=== PATIENT | female | born 1955 | race Caucasian/White ===

== ENCOUNTER 2023-08-29 08:05 | Observation (INO) ==
--- NOTE | 2023-08-26 16:25 | Anesthesiology Consultation ---
Date of Service August 26, 2023 Assessment & Plan (1) Encounter for pre-operative examination: - Infectious disease screening: Per assessment on 08/25/23: No known recent infectious disease contacts or current infectious disease symptoms. - PCP visit (08/18/23): "Pt is to have pre-op testing completed in next few days. Clearance pending based on results." - Preop CXR: Done 08/21/23- notes "prominent bronchovascular markings, likely changes of bronchitis.." Patient was seen by PCP for preop evaluation appt on 08/18/23 and noted patient "Denies cough, shortness of breath, hemoptysis, wheezing.. Pulmonary: no respiratory distress, no accessory muscle use, no adventitious lung sounds, clear to auscultation.." Preop CXR was reviewed by PCP and per PCP addendum 08/25/23, ""Preop testing reviewed. Pt is at acceptable risk for planned procedure and may proceed as scheduled.." At anesthesiologist discretion DOS if further needed preoperatively from their perspective. Chart Review Chart Review: Acceptable Risk for Surgery (pending evaluation DOS) and Patient NOT seen in Pre Admission Testing History Surgery Operation Date: 08/29/23 11:25 Proposed Procedures p L3-L4 Decompression and Fusion with Spinal Cord Monitoring - Abdias Flowers, DO Height/Weight Height: 5 ft 1 in Weight: 115.666 kg Allergies Allergy/AdvReac Type Severity Reaction Status Date / Time amoxicillin Allergy head to Verified 08/25/23 12:54 toe rash and swelling nut - unspecified Allergy tongue Verified 08/25/23 13:10 swelling, and inside of mouth shellfish derived Allergy seafood Verified 08/25/23 13:10 itself-tongue swelling Medications Home Medications Medication Instructions Recorded Confirmed Last Taken baclofen 10 mg tablet 10 mg PO QID 08/25/23 08/25/23 Unknown beta carotene 15 mg tablet 15 mg PO QAM 08/25/23 08/25/23 Unknown biotin 10,000 mcg capsule 10,000 mcg PO QPM 08/25/23 08/25/23 Unknown celecoxib 200 mg capsule (Celebrex) 200 mg PO BID 08/25/23 08/25/23 Unknown cholecalciferol (vitamin D3) 125 125 mcg PO BID 08/25/23 08/25/23 Unknown mcg (5,000 unit) tablet (Vitamin D3) fluticasone propionate 50 1 spray intranasal HS 08/25/23 08/25/23 Unknown mcg/actuation nasal spray,suspension loratadine 10 mg tablet 10 mg PO DAILY PRN Allergy Symptoms 08/25/23 08/25/23 Unknown losartan 50 mg tablet 50 mg PO HS 08/25/23 08/25/23 Unknown magnesium 250 mg tablet 125 mg PO QID 08/25/23 08/25/23 Unknown multivitamin 0.5 tab PO QPM 08/25/23 08/25/23 Unknown ondansetron 4 mg disintegrating 4 mg PO Q6H PRN Nausea 08/25/23 08/25/23 Unknown tablet ropinirole 1 mg tablet 1 mg PO HS 08/25/23 08/25/23 Unknown simvastatin 40 mg tablet 40 mg PO HS 08/25/23 08/25/23 Unknown venlafaxine 37.5 mg 37.5 mg PO QAM 08/25/23 08/25/23 Unknown tablet,extended release 24 hr Past Medical History Medical History Depression with anxiety Hyperlipidemia Hypertension Restless leg syndrome Past Surgical History Surgical History History of anesthesia reaction "Always cries" with anesthesia emergence History of bilateral tubal ligation History of nasal surgery ~1984, reconstruction after surgery History of repair of rectocele History of total right hip arthroplasty 2018 Hx of appendectomy Hx of bladder repair surgery Hx of cholecystectomy Hx of hysterectomy Hx of lumbosacral spine surgery 2017, L3-L4 fusion, above L3-L4 "had bars and screws placed" Hx of wisdom tooth extraction Social History Smoking Status: Former smoker Do You Dip or Chew Tobacco: No Smoking End Date: 03/09/12 Hx Alcohol Use: Yes alcohol intake frequency: holidays/special occasions only Hx Substance Use: Yes substance use type: former substance user and marijuana (medical card) Testing Laboratory Results 08/21/23 WBC 11.95 H/H 15.8/49.3 PLATELETS 208 SODIUM 140 POTASSIUM 4.3 CHLORIDE 105 CO2 29.0 BUN 21.0 CREATININE 0.97 GLUCOSE 92 PT 11.6 PTT 29.9 INR 0.97 UA trace leuk est, neg bacteria Electrocardiogram Date: 08/21/23 SR at 64bpm. Chest X-Ray Date: 08/21/23 Prominent bronchovascular markings, likely changes of bronchitis. Tortuous aorta with atherosclerotic calcification. Degenerative changes of the thoracolumbar spine.
[~2023-08-29 08:05] MED LIST: dexAMETHasone**PF** 10 MG/ML VIAL IV SCH
[2023-08-29] MEDS: LR 15ML/HR IV SCH (08:39)
[2023-08-29] MEDS: LR 60ML/HR IV SCH (08:40)
[2023-08-29] MEDS: VANCOMYCIN HCL 1,750 MG in SODIUM CHLORIDE 0.9% 500 ML IV SCH (08:40)
[2023-08-29] MEDS: ACETAMINOPHEN 500 MG TAB PO SCH (09:02)
[2023-08-29] MEDS: CeleBREX 200 MG CAP PO SCH (09:03)
[2023-08-29] MEDS: GABAPENTIN 300 MG CAP PO SCH (09:03)
[2023-08-29] MEDS ORDERED: fentaNYL citrate PF 100 MCG/2 ML VIAL ONE (10:33)
[2023-08-29] MEDS ORDERED: MIDAZOLAM HCL 1 MG/ML 2ML VIAL ONE (10:33)
[2023-08-29] MEDS ORDERED: KETAMINE HCL 10MG/ML SYR ONE (10:34)
--- NOTE | 2023-08-29 10:59 | History & Physical Bridge Note ---
Date of Service August 29, 2023 History & Physical Bridge Note I have examined the patient, reviewed the History & Physical and in the interval since the performance of the History & Physical I have noted the following changes of clinical significance: no changes noted
--- NOTE | 2023-08-29 11:00 | History & Physical Report ---
Date of Service August 29, 2023 Assessment & Plan (1) Neurogenic claudication due to lumbar spinal stenosis: Plan: L3-L4 decompression and fusion, removal of L4-L5 hardware History of Present Illness Chief Complaint: Back and bilateral leg pain Primary Care Provider: Prasad Mcadams MD This is a 68-year-old female who presents with chronic persistent back and leg pain and failing since course of nonoperative care is here for surgical invention. Allergies Allergy/AdvReac Type Severity Reaction Status Date / Time amoxicillin Allergy head to Verified 08/29/23 08:43 toe rash and swelling nut - unspecified Allergy tongue Verified 08/29/23 08:43 swelling, and inside of mouth shellfish derived Allergy seafood Verified 08/29/23 08:43 itself-tongue swelling Home Medications Medication Instructions Recorded Confirmed Type baclofen 10 mg tablet 10 mg PO QID 08/25/23 08/29/23 History beta carotene 15 mg tablet 15 mg PO QAM 08/25/23 08/29/23 History biotin 10,000 mcg capsule 10,000 mcg PO QPM 08/25/23 08/29/23 History celecoxib 200 mg capsule (Celebrex) 200 mg PO BID 08/25/23 08/29/23 History cholecalciferol (vitamin D3) 125 125 mcg PO BID 08/25/23 08/29/23 History mcg (5,000 unit) tablet (Vitamin D3) fluticasone propionate 50 1 spray intranasal HS 08/25/23 08/29/23 History mcg/actuation nasal spray,suspension loratadine 10 mg tablet 10 mg PO DAILY PRN Allergy Symptoms 08/25/23 08/29/23 History losartan 50 mg tablet 50 mg PO HS 08/25/23 08/29/23 History magnesium 250 mg tablet 125 mg PO QID 08/25/23 08/29/23 History multivitamin 0.5 tab PO QPM 08/25/23 08/29/23 History ondansetron 4 mg disintegrating 4 mg PO Q6H PRN Nausea 08/25/23 08/29/23 History tablet ropinirole 1 mg tablet 1 mg PO HS 08/25/23 08/29/23 History simvastatin 40 mg tablet 40 mg PO HS 08/25/23 08/29/23 History venlafaxine 37.5 mg 37.5 mg PO QAM 08/25/23 08/29/23 History tablet,extended release 24 hr Past Med/Surg History Problem List (Updated 08/29/23 @ 11:00 by Abdias Flowers DO) Neurogenic claudication due to lumbar spinal stenosis Encounter for pre-operative examination Medical History Depression with anxiety Hyperlipidemia Hypertension Restless leg syndrome Surgical History History of anesthesia reaction "Always cries" with anesthesia emergence History of bilateral tubal ligation History of nasal surgery ~1984, reconstruction after surgery History of repair of rectocele History of total right hip arthroplasty 2018 Hx of appendectomy Hx of bladder repair surgery Hx of cholecystectomy Hx of hysterectomy Hx of lumbosacral spine surgery 2017, L3-L4 fusion, above L3-L4 "had bars and screws placed" Hx of wisdom tooth extraction Social History Smoking Status: Former smoker Smoking End Date: 03/09/12; Second Hand Exposure: No; Do You Dip or Chew Tobacco: No; Tobacco Cessation Education Requested by Patient: No Hx Alcohol Use: Yes Hx Substance Use: Yes Preferred Language: German Communication Ability: Effective Forestry Adviser Required: No Beliefs That Will Affect Care: None Current Living Situation: Alone Other Information That Helps Us Care for You: No Feels Safe at Home: Yes Safety Concerns: Feels Safe At This Time Assistive Devices: Glasses and Other Assistive Devices Comment: partials upper and lower Physical Exam Physical Exam: Patient is alert and oriented Heart regular in rhythm Lungs clear Results & Data Results & Data Vital Signs (Past 12 Hours) Vital Signs Temp Pulse Resp BP Pulse Ox O2 Del Method 08/29/23 08:48 36.6 C 73 20 164/105 H 94 Room Air
[2023-08-29] MEDS ORDERED: LABETALOL HCL IV 5 MG/ML 20ML IV PRN (11:17)
[2023-08-29] MEDS ORDERED: ATROPINE SULFATE 0.1 MG/ML 10ML SYR IV PRN (11:17)
[2023-08-29] MEDS ORDERED: NALOXONE HCL 0.4 MG/1 ML VIAL/CARP IV PRN ×2 (11:17→16:34)
[2023-08-29] MEDS ORDERED: PROMETHAZINE HCL 6.25 MG in SODIUM CHLORIDE 0.9% 50 ML IV PRN (11:17)
[2023-08-29] MEDS ORDERED: HYDROmorphone INJ 1 MG/ML SYRINGE IV PRN (11:17)
[2023-08-29] MEDS ORDERED: ONDANSETRON INJ 2 MG/ML 2 ML VIAL IV PRN ×2 (11:17→16:34)
[2023-08-29] MEDS ORDERED: FLUMAZENIL 0.1 MG/1 ML 10 ML VIAL IV PRN (11:17)
[2023-08-29] MEDS ORDERED: ePHEDrine sulfate 50 MG/ML AMP IV PRN (11:17)
[2023-08-29] MEDS: BUPIVACAINE/EPINEPHRINE 0.25% 1:200,000 30 ML VIAL ONE (12:07)
[2023-08-29] MEDS ORDERED: ROCURONIUM BROMIDE 10 MG/ML 5 ML VIAL IV ONE ×2 (12:12→13:32)
[2023-08-29] MEDS ORDERED: PHENYLEPHRINE 100MCG/ML 10ML SYR IV ONE (12:55)
[2023-08-29] MEDS ORDERED: HYDROmorphone INJ 2 MG/ML SYR/VIAL ONE (12:55)
[2023-08-29] MEDS ORDERED: ePHEDrine sulfate 50 MG/5 ML SYR ONE (12:55)
[2023-08-29] MEDS ORDERED: SUGAMMADEX SODIUM 200 MG/2 ML VIAL IV ONE ×2 (13:31→13:50)
[2023-08-29] MEDS ORDERED: SUCCINYLCHOLINE CHLORIDE 20 MG/ML 10 ML VIAL IV ONE (13:32)
[2023-08-29] MEDS: ceFAZolin 330 MG/ML 1 GM VIAL ONE (13:33)
[2023-08-29] MEDS: FLOSEAL HEMOSTATIC MATRIX 10ML TOP ONE (13:33)
--- NOTE | 2023-08-29 13:50 | Operative Report ---
Post Operative Report Pre & Post Diagnosis Operation Date: 08/29/23 11:25 Pre-Op Diagnosis: Neurogenic Claudication due to Lumbar Spinal Stenosis spondylolisthesis L3-L4 Morbid obesity Post-Op Diagnosis: Same I identified the patient and participated in the time-out.: Yes Procedure Operation Date: 08/29/23 11:25 Actual Procedures #1 removal of instrumentation L4 5. #2 exploration of fusion L4-5. #3 lumbar decompression with bilateral medial facetectomies and foraminotomies L2-L3 L3- L4. #4 posterior spinal fusion L3-L4. #5 placement posterior instrumentation L3-L5. #6 interbody fusion L3-L4. #7 placement of Spira 12 x 26 mm x 2 at L3- L4. #8 placement locally harvested morselized autograft in the posterior gutters. #9 placement infuse collagen sponge, with Koros in the posterior lateral gutters and Morpheus interbody space. Surgeon Abdias Flowers, DO Dairy Specialist Tristin Elizabeth Estimated Blood Loss 450 Findings See Below The patient is 5 foot 1 weighing over 116 kg with a BMI in excess of 48. The patient's body habitus did contribute to significant technical difficulty with positioning exposure and the procedure itself. This at least 50% increased operative time and I would attach 22 modifier to this procedure. Specimens None Indications This is a 68-year-old female who presents problems diagnosis of failed course of nonoperative care she is here for surgical invention. Description of Procedure Patient was met with identified informed consent obtained. Patient was then taken to the operative suite underwent patient placed in a prone position on the Kelvin table on top of the Krunal frame. All bony prominences well-padded eyes inspected to ensure no external pressure placed upon them. This point the lumbar spine was prepped and draped in normal sterile fashion. Sharp dissection with the assistance of Bovie cautery form down to and exposing the lamina and transverse processes of L3 and instrumentation L4-L5 bilaterally. I then proceeded to move the hardware bilaterally explored the fusion mass at L4-5 noting the bone to be mature and intact. I then performed a complete laminectomy of L3 including bilateral medial facetectomies and foraminotomies addressing severe spinal stenosis. I performed a partial laminectomy L2 including bilateral medial facetectomies to address all lateral recess stenosis. Pedicle screws were then placed in L3 L4-5 bilaterally with assistance of fluoroscopy in the process du placed. By way of transforaminal approach on the right at discectomy of L3-L4 was performed endplates guided to subcortical bleeding bone and a 12 x 26 mm spiral cage filled with Morpheus bone graft t apped in position. Then proceeded to the left transforaminal region at L3-L4. Discectomy performed endplates guided to subcortical bleeding bone and a second 12 x 26 mm spiral cage filled with I factor tapped in position. The rods were then compressed locked in final position bilaterally. The transverse processes of L3-L4 burred to subcortical bleeding bone. Infuse collagen sponge, with Koros and local autograft placed in the posterior gutters. 15 round SHARONDA inserted. The incision was then closed with 1 Vicryl in the fascia 2-0 Vicryl subcutaneously and 4 Monocryl for final skin closure. Steri-Strips sterile dressing placed. Patient waken taken PACU stable condition. Please note spinal cord monitoring was utilized at the procedure no changes noted. Berenice Elizabeth was present at the entire surgery upon the patient positioning complex course of the surgery and final skin closure. I attest to the content of the Intraoperative Record and any orders documented therein. Any exceptions are noted below.
--- NOTE | 2023-08-29 14:19 | Fluoroscopy Report ---
FL lumbar spine 2-3V CLINICAL HISTORY: L3-L4 DECOMPRESSION AND FUSION TECHNIQUE: 2 views were obtained with the C-arm in the OR with the above procedure. Total fluoroscopy time was 17.7 seconds. Radiation dose was 20.13 mGy. Comparison: None available at the time of this dictation. FINDINGS/IMPRESSION: Intraoperative images were obtained of L3-L4 decompression and fusion. Please correlate with intraoperative fluoroscopy and operative report. ACT 112: Negative or not required by law. Electronically signed by: Jackson Quispe M.D. 08/29/2023 2:17 PM
[2023-08-29] MEDS: fentaNYL citrate PF 100 MCG/2 ML VIAL IV PRN (14:45)
[2023-08-29] MEDS ORDERED: LORATADINE 10 MG TAB PO PRN (16:34)
[2023-08-29] MEDS ORDERED: ALUMINUM/MAGNESIUM SUSP 30 ML UDC PO PRN (16:34)
[2023-08-29] MEDS ORDERED: LORazepam 0.5 MG in SYRINGE 0.25 ML IV PRN (16:34)
[2023-08-29] MEDS ORDERED: SOD PHOSPHATE/SOD BIPHOSPHATE ENEMA 132 ML BTL PR PRN (16:34)
[2023-08-29] MEDS ORDERED: DO NOT ADMINISTER PNEUMOCOCCAL VACCINE PRN (16:34)
[2023-08-29] MEDS ORDERED: METOCLOPRAMIDE HCL INJ 5 MG/ML 2 ML VIAL IV PRN (16:34)
[2023-08-29] MEDS ORDERED: bisacodyL 10 MG SUPP PR PRN (16:34)
[2023-08-29] MEDS ORDERED: DO NOT ADMINISTER FLU VACCINE PRN (16:34)
[2023-08-29] MEDS ORDERED: MAGNESIUM HYDROXIDE SUSP 30 ML UDC PO PRN (16:34)
[2023-08-29] MEDS ORDERED: ACETAMINOPHEN 1,000 MG/100 ML VIAL IV PRN (16:34)
[2023-08-29] MEDS ORDERED: ACETAMINOPHEN 500 MG TAB PO PRN (16:34)
[2023-08-29] MEDS ORDERED: hydrOXYzine HCl 25 MG TAB PO PRN (16:34)
[2023-08-29] MEDS ORDERED: FAMOTIDINE 20 MG TAB PO PRN (16:34)
[2023-08-29] MEDS ORDERED: PROMETHAZINE HCL 12.5 MG in SODIUM CHLORIDE 0.9% 50 ML IV PRN (16:34)
[2023-08-29] MEDS ORDERED: diphenhydrAMINE Capsule 25 MG CAP PO PRN (16:34)
[2023-08-29] MEDS ORDERED: HYDROmorphone INJ 0.5 MG/0.5 ML SYR IV PRN (16:34)
[2023-08-29] MEDS ORDERED: NON-FORMULARY MEDICATION (Magnesium 250 mg Tablet) PO SCH (17:00)
--- NOTE | 2023-08-29 17:09 | Anesthesiology Progress Note ---
Date of Service August 29, 2023 Anesthesia Post Procedure Vital Signs Vital Signs: Temp Pulse Pulse Resp BP Pulse Ox O2 Del Method 08/29/23 16:55 36.5 C 79 22 118/70 95 Room Air 08/29/23 16:26 36.7 C 80 18 109/61 97 Room Air 08/29/23 15:35 36.9 C 83 14 129/71 97 Room Air 08/29/23 15:25 36.9 C 85 20 126/60 98 Room Air 08/29/23 15:15 36.9 C 82 16 130/54 L 98 Room Air 08/29/23 15:05 36.9 C 82 8 L 129/63 98 Room Air 08/29/23 14:55 83 18 119/85 98 Room Air 08/29/23 14:45 83 8 L 104/66 99 Oxymask 08/29/23 14:35 79 18 134/59 L 98 Oxymask 08/29/23 14:26 36.6 C 98 H 10 L 165/73 H 100 Oxymask 08/29/23 08:48 36.6 C 73 20 164/105 H 94 Room Air O2 Flow Rate 08/29/23 16:55 08/29/23 16:26 08/29/23 15:35 08/29/23 15:25 08/29/23 15:15 08/29/23 15:05 08/29/23 14:55 08/29/23 14:45 1 08/29/23 14:35 3 08/29/23 14:26 5 08/29/23 08:48 Pain Intensity Back: Pain Intensity: 3 Transfer of Care Handoff Completed per policy Notes Mental Status: alert / awake / arousable Patient Amnestic to Procedure: Yes Nausea / Vomiting: adequately controlled Pain: adequately controlled Airway Patency, RR, SpO2: stable & adequate BP & HR: stable & adequate Hydration State: stable & adequate Anesthetic Complications: no major complications apparent and Pt Satisfied with anesthetic care
[2023-08-29] MEDS: HYDROmorphone INJ 1 MG/ML SYRINGE IV PRN (17:17)
[2023-08-29] MEDS: LACTATED RINGER'S 1,000 ML IV SCH (17:18)
--- NOTE | 2023-08-29 17:34 | Consultation ---
Date of Consultation August 29, 2023 Assessment & Plan (1) Neurogenic claudication due to lumbar spinal stenosis: Plan Neurogenic Claudication due to Lumbar Spinal Stenosis s/p lumbar spine sx 08/28, pt reports improvement in BLE radicular symptoms Labs in AM, watch out for acute blood loss anemia. pt is hemodynamically stable, c/w pain control and bowel regimen DVT Px and PT/OT per direction from primary team Other chronic med contitions: HTN, HLD, Anxiety, Depression -- c/w or resume home meds as and when able. DVT Px - SCDs, chemo px per 1* team Full code. History of Present Illness Requesting Physician: Dr. Flowers Reason for Consultation: medical Mx Attending Physician: Abdias Folwers, History of Present Illness 68 yo F w/ PMH of anxiety/depression on effexor, HLD, HTN, arthritic pain was seen at bedside as medical consult after lumbar spine Sx. She is hemodynamically stable, denied recent febrile illness. She reports improvement in her BLE radicular symptoms after the surgery. She reports operative site pain under control w/ pain meds. No h/o afib or blood clot per pt. Denies cough, chest pain, or abdominal pain. Denies recent acute changes in bowel or bladder habit. Denies smoking, very rare alc use Full code. Allergies Allergy/AdvReac Type Severity Reaction Status Date / Time amoxicillin Allergy head to Verified 08/29/23 08:43 toe rash and swelling nut - unspecified Allergy tongue Verified 08/29/23 08:43 swelling, and inside of mouth shellfish derived Allergy seafood Verified 08/29/23 08:43 itself-tongue swelling Home Medications Medication Instructions Recorded Confirmed Type baclofen 10 mg tablet 10 mg PO QID 08/25/23 08/29/23 History beta carotene 15 mg tablet 15 mg PO QAM 08/25/23 08/29/23 History biotin 10,000 mcg capsule 10,000 mcg PO QPM 08/25/23 08/29/23 History celecoxib 200 mg capsule (Celebrex) 200 mg PO BID 08/25/23 08/29/23 History cholecalciferol (vitamin D3) 125 125 mcg PO BID 08/25/23 08/29/23 History mcg (5,000 unit) tablet (Vitamin D3) fluticasone propionate 50 1 spray intranasal HS 08/25/23 08/29/23 History mcg/actuation nasal spray,suspension loratadine 10 mg tablet 10 mg PO DAILY PRN Allergy Symptoms 08/25/23 08/29/23 History losartan 50 mg tablet 50 mg PO HS 08/25/23 08/29/23 History magnesium 250 mg tablet 125 mg PO QID 08/25/23 08/29/23 History multivitamin 0.5 tab PO QPM 08/25/23 08/29/23 History ondansetron 4 mg disintegrating 4 mg PO Q6H PRN Nausea 08/25/23 08/29/23 History tablet ropinirole 1 mg tablet 1 mg PO HS 08/25/23 08/29/23 History simvastatin 40 mg tablet 40 mg PO HS 08/25/23 08/29/23 History venlafaxine 37.5 mg 37.5 mg PO QAM 08/25/23 08/29/23 History tablet,extended release 24 hr Patient History Medical History Depression with anxiety Hyperlipidemia Hypertension Restless leg syndrome Surgical History History of anesthesia reaction "Always cries" with anesthesia emergence History of bilateral tubal ligation History of nasal surgery ~1984, reconstruction after surgery History of repair of rectocele History of total right hip arthroplasty 2018 Hx of appendectomy Hx of bladder repair surgery Hx of cholecystectomy Hx of hysterectomy Hx of lumbosacral spine surgery 2017, L3-L4 fusion, above L3-L4 "had bars and screws placed" Hx of wisdom tooth extraction Social History Smoking Status: Former smoker Smoking End Date: 03/09/12; Second Hand Exposure: No; Do You Dip or Chew Tobacco: No; Tobacco Cessation Education Requested by Patient: No Hx Alcohol Use: Yes Hx Substance Use: Yes Preferred Language: Malagasy Communication Ability: Effective Promotions Executive Required: No Beliefs That Will Affect Care: None Current Living Situation: Alone Other Information That Helps Us Care for You: No Feels Safe at Home: Yes Safety Concerns: Feels Safe At This Time Assistive Devices: Glasses and Other Assistive Devices Comment: partials upper and lower Review of Systems Review of Systems: Neg otherwise mentioned in HPI Physical Exam Physical Exam: GENERAL: Alert and oriented x3. NAD, on RA. Obese class III. HEENT: No pallor, no icterus. Pupils equal, round and reactive to light. Oral mucosa moist. NECK: No JVD, no neck masses. HEART: S1 and S2 heard. Regular rate and rhythm. No murmur, no gallop. RESPIRATORY SYSTEM: Normal AP diameter. No accessory muscle use. No wheezing, no crackles. ABDOMEN: Soft, bowel sounds present, nontender, no distention. CENTRAL NERVOUS SYSTEM: No facial droop. Speech is clear. Obeys simple commands. Moves extremities. EXTREMITIES: No edema, no erythema seen. Low back dressing w/o soakage. SHARONDA drain w/ mod serosanguineous collection noted. Results & Data Vital Signs (Past 12 Hours) Vital Signs Temp Pulse Pulse Resp BP Pulse Ox O2 Del Method 08/29/23 17:24 36.4 C L 78 20 120/61 97 Room Air 08/29/23 16:55 36.5 C 79 22 118/70 95 Room Air 08/29/23 16:26 36.7 C 80 18 109/61 97 Room Air 08/29/23 15:35 36.9 C 83 14 129/71 97 Room Air 08/29/23 15:25 36.9 C 85 20 126/60 98 Room Air 08/29/23 15:15 36.9 C 82 16 130/54 L 98 Room Air 08/29/23 15:05 36.9 C 82 8 L 129/63 98 Room Air 08/29/23 14:55 83 18 119/85 98 Room Air 08/29/23 14:45 83 8 L 104/66 99 Oxymask 08/29/23 14:35 79 18 134/59 L 98 Oxymask 08/29/23 14:26 36.6 C 98 H 10 L 165/73 H 100 Oxymask 08/29/23 08:48 36.6 C 73 20 164/105 H 94 Room Air O2 Flow Rate 08/29/23 17:24 08/29/23 16:55 08/29/23 16:26 08/29/23 15:35 08/29/23 15:25 08/29/23 15:15 08/29/23 15:05 08/29/23 14:55 08/29/23 14:45 1 08/29/23 14:35 3 08/29/23 14:26 5 08/29/23 08:48
[2023-08-29] MEDS: oxyCODONE HCL IR 5 MG TAB (IMMEDIATE RELEASE) PO PRN (18:48)
[2023-08-29] MEDS: DOCUSATE SODIUM/SENNA 50/8.6MG TAB PO SCH (20:56)
[2023-08-29] MEDS: FLUTICASONE PROPIONATE NA SPR 16 GM BTL SCH (20:56)
[2023-08-29] MEDS: CLINDAMYCIN/D5W 600 MG/50 ML BAG IV SCH (20:56)
[2023-08-29] MEDS: rOPINIRole HCL 1 MG TABLET PO SCH (20:57)
[2023-08-29] MEDS: LOSARTAN POTASSIUM 50 MG TAB PO SCH (20:57)
[2023-08-29] MEDS: CHOLECALCIFEROL 125 MCG (5,000 UNITS) TAB PO SCH (20:57)
[2023-08-29] MEDS: SIMVASTATIN 40 MG TAB PO SCH (20:57)
[2023-08-29] MEDS: MULTIVITAMIN TAB PO SCH (21:10)
[2023-08-30] MEDS ORDERED: Nursing to Pharmacy Communication SCH (03:45)
[2023-08-30] MEDS: POLYETHYLENE (MIRALAX) 17 GM PACK PO SCH (05:36)
[2023-08-30 07:11] LABS: Basophils # (auto) 0.01 K/uL (0.00-0.20); Basophils % (auto) 0.1 %; Hematocrit (blood only) 36.7 % (37.0-47.0); Immature Granulocytes # (auto) 0.08 K/uL (0.01-0.20); Immature Granulocytes % (auto) 0.6 %; Lymphocytes # (auto) 0.95 K/uL (1.20-3.40); Lymphocytes % (auto) 7.2 %; Mean Corpuscular Hemoglobin 29.6 pg (25.0-34.0); Mean Corpuscular Hgb Conc 32.7 g/dL (32.0-36.0); Mean Corpuscular Volume 90.6 fL (80.0-100.0); Mean Platelet Volume 10.8 fL (9.4-12.4); Monocytes # (auto) 0.64 K/uL (0.11-0.59); Monocytes % (auto) 4.9 %; Neutrophils # (auto) 11.51 K/uL (1.40-6.50); Neutrophils % (auto) 87.2 %; Platelet Count 148 K/uL (130-400); RDW Coefficient of Variation 15.7 % (11.5-14.5); RDW Standard Deviation 51.4 fL (36.4-46.3); Red Blood Count 4.05 M/uL (4.20-5.40); White Blood Count 13.19 K/ul (4.8-10.8)
[2023-08-30 07:32] LABS: Calcium 8.5 mg/dl (8.6-10.3); Creatinine Clr Calc Pharmacy 81.1 ml/min; Est GFR (African American) 87.7 ml/min; Est GFR (Non-African American) 75.7 ml/min; Potassium 4.4 mmol/L (3.5-5.1)
[2023-08-30] MEDS: dexAMETHasone 6 MG in SYRINGE 0 ML IV SCH (08:17)
[2023-08-30] MEDS: VENLAFAXINE HCL XR 37.5 MG CAPXR PO SCH (08:17)
[2023-08-30] MEDS: MULTIVITAMIN TAB PO SCH (08:18)
--- NOTE | 2023-08-30 08:46 | Orthopedic Progress Note ---
Date of Service August 30, 2023 Assessment & Plan (1) Neurogenic claudication due to lumbar spinal stenosis: Plan: At this time initiate physical therapy monitor SHARONDA output anticipate discharge home Friday. Admission and Anticipated Discharge Date Admission Date: August 29, 2023 Subjective Back pain is controlled leg symptoms markedly improved Physical Exam Physical Exam: Patient is seen in bed. She is comfortable. Is good strength testing. Results & Data Vital Signs (Past 12 Hours) Vital Signs Temp Pulse Pulse Resp BP Pulse Ox O2 Del Method 08/30/23 07:54 36.6 C 67 18 121/62 95 Room Air 08/30/23 04:00 36.6 C 70 18 156/62 H 96 Room Air 08/29/23 23:37 Room Air 08/29/23 22:52 36.5 C 73 20 131/67 96 Room Air 08/29/23 20:55 36.5 C 82 16 131/65 94 Room Air Queries Orthopedic Spine Obesity: Yes
--- NOTE | 2023-08-30 11:54 | Hospitalist Progress Note ---
Date of Service August 30, 2023 Assessment & Plan (1) Neurogenic claudication due to lumbar spinal stenosis: Plan Pt is a 68yoF w/ PMHx significant for anxiety/depression on Effexor, HLD, HTN, arthritic pain who is s/p lumbar decompression and spinal fusion. Neurogenic Claudication due to Lumbar Spinal Stenosis Pt is s/p lumbar decompression with bilateral medial facetectomies and foraminotomies L2-L3 L3-L4, and posterior spinal fusion L3-L4 on 08/29/[address] Flowers Pt reports improvement in BLE radicular symptoms EBL#450ml Pain management per primary team Wound management per primary team DVT prophylaxis per primary team PT/OT as appropriate Incentive spirometry Monitor H&H for acute blood loss anemia; Hgb stable Other chronic med conditions: HTN, HLD, Anxiety, Depression -- continue with and resume home meds when able. DVT Px - per primary team Dispo: per primary team, home on Friday Admission and Anticipated Discharge Date Admission Date: August 29, 2023 Subjective pt was seen sitting in chair near bedside. Denied chest pain, SOB, palpitations. States pain controlled. Otherwise denied acute concerns. Review of Systems Review of Systems: All systems reviewed & are unremarkable except as noted in Subjective Physical Exam Physical Exam: General: Alert, oriented. No acute distress Psych: Appropriate mood and affect Neuro: difficulty with movements in the chair HEENT: NC/AT CV: RRR, Normal s1, s2. Resp: Breath sounds clear bilaterally, no increased effort of breathing. Abdomen: Soft, nontender, nondistended. Extremities: No edema in lower extremities bilaterally. Results & Data Results & Data Vital Signs (Past 12 Hours) Vital Signs Temp Pulse Resp BP Pulse Ox O2 Del Method 08/30/23 07:54 36.6 C 67 18 121/62 95 Room Air 08/30/23 04:00 36.6 C 70 18 156/62 H 96 Room Air
[2023-08-30] MEDS: LORazepam 0.5 MG TAB PO PRN (21:49)
[2023-08-31 06:45] LABS: Hematocrit (blood only) 38.3 % (37.0-47.0); Hemoglobin 12.2 g/dl (12.0-16.0); Mean Corpuscular Hemoglobin 29.1 pg (25.0-34.0); Mean Corpuscular Hgb Conc 31.9 g/dL (32.0-36.0); Mean Corpuscular Volume 91.4 fL (80.0-100.0); Mean Platelet Volume 11.1 fL (9.4-12.4); Platelet Count 171 K/uL (130-400); RDW Standard Deviation 54.3 fL (36.4-46.3); Red Blood Count 4.19 M/uL (4.20-5.40); White Blood Count 15.74 K/ul (4.8-10.8)
[2023-08-31 07:11] LABS: BUN Creatinine Ratio 28.8 (10-20); Calcium 9.1 mg/dl (8.6-10.3); Creatinine Clr Calc Pharmacy 82.1 ml/min; Est GFR (Non-African American) 76.8 ml/min; Potassium 4.5 mmol/L (3.5-5.1)
--- NOTE | 2023-08-31 09:16 | Orthopedic Progress Note ---
Date of Service August 31, 2023 Assessment & Plan (1) Neurogenic claudication due to lumbar spinal stenosis: Plan: We will continue therapy today. Have her navigate stairs today. Anticipate discharge home tomorrow. Admission and Anticipated Discharge Date Admission Date: August 29, 2023 Subjective Back pain controlled leg pain improved Physical Exam Physical Exam: Patient is in the chair at the bedside. She is strength testing. There is com fortable. Results & Data Vital Signs (Past 12 Hours) Vital Signs Temp Pulse Resp BP Pulse Ox O2 Del Method 08/31/23 07:56 36.4 C 65 18 149/86 H 94 Room Air 08/30/23 22:04 36.6 C 79 22 157/79 H 96 Room Air Queries Orthopedic Spine Obesity: Yes
[2023-08-31] MEDS: traMADol HCL 50 MG TABLET PO PRN (10:39)
--- NOTE | 2023-08-31 14:28 | Hospitalist Progress Note ---
Date of Service August 31, 2023 Assessment & Plan (1) Neurogenic claudication due to lumbar spinal stenosis: Plan Pt is a 68yoF w/ PMHx significant for anxiety/depression on Effexor, HLD, HTN, arthritic pain who is s/p lumbar decompression and spinal fusion. Neurogenic Claudication due to Lumbar Spinal Stenosis Pt is s/p lumbar decompression with bilateral medial facetectomies and foraminotomies L2-L3 L3-L4, and posterior spinal fusion L3-L4 on 08/29/[address] Flowers Pt reports improvement in BLE radicular symptoms EBL#450ml Pain management per primary team Wound management per primary team DVT prophylaxis per primary team PT/OT as appropriate Incentive spirometry Monitor H&H for acute blood loss anemia; Hgb stable Other chronic med conditions: HTN, HLD, Anxiety, Depression -- continue with and resume home meds when able. DVT Px - per primary team Dispo: per primary team, home on Friday Admission and Anticipated Discharge Date Admission Date: August 29, 2023 Subjective Pt was seen laying in bed States she had difficulty with movements today whie working with PT. Denied pain, chest pain, SOB, Review of Systems Review of Systems: All systems reviewed & are unremarkable except as noted in Subjective Physical Exam Physical Exam: General: Alert, oriented. No acute distress Psych: Appropriate mood and affect Neuro: difficulty with movements HEENT: NC/AT CV: RRR Resp: no increased effort of breathing. Abdomen: Soft, nontender, nondistended. Extremities: No edema in lower extremities bilaterally. Results & Data Results & Data Vital Signs (Past 12 Hours) Vital Signs Temp Pulse Resp BP Pulse Ox O2 Del Method 08/31/23 07:56 36.4 C 65 18 149/86 H 94 Room Air
[2023-09-01 06:22] LABS: Hematocrit (blood only) 37.5 % (37.0-47.0); Hemoglobin 12.2 g/dl (12.0-16.0); Mean Corpuscular Hemoglobin 29.6 pg (25.0-34.0); Mean Corpuscular Hgb Conc 32.5 g/dL (32.0-36.0); Mean Platelet Volume 10.7 fL (9.4-12.4); Platelet Count 168 K/uL (130-400); RDW Coefficient of Variation 15.9 % (11.5-14.5); RDW Standard Deviation 52.8 fL (36.4-46.3); Red Blood Count 4.12 M/uL (4.20-5.40); White Blood Count 12.13 K/ul (4.8-10.8)
[2023-09-01 06:33] LABS: BUN Creatinine Ratio 26.5 (10-20); Calcium 9.5 mg/dl (8.6-10.3); Creatinine Clr Calc Pharmacy 79.2 ml/min; Est GFR (African American) 85.2 ml/min; Est GFR (Non-African American) 73.5 ml/min; Potassium 4.3 mmol/L (3.5-5.1)
--- NOTE | 2023-09-01 09:07 | Orthopedic Progress Note ---
Date of Service September 01, 2023 Assessment & Plan (1) Neurogenic claudication due to lumbar spinal stenosis: Plan: At this time we will continue physical therapy another attempt at stairs today. Consult for home health. Hopefully home tomorrow. Admission and Anticipated Discharge Date Admission Date: August 29, 2023 Subjective Back pain controlled leg pain improved. She struggled yesterday with steps. She does have a flight of steps at home that she must navigate in order to get to the bedroom and bathroom. Physical Exam Physical Exam: Patient is in the chair at bedside she would. She is comfortable. Distracted testing. Results & Data Vital Signs (Past 12 Hours) Vital Signs Temp Pulse Resp BP Pulse Ox O2 Del Method 09/01/23 07:25 36.6 C 57 L 16 185/91 H 96 Room Air 08/31/23 22:22 36.6 C 70 20 181/80 H 96 Room Air Queries Orthopedic Spine Obesity: Yes
--- NOTE | 2023-09-01 13:04 | Hospitalist Progress Note ---
Date of Service September 01, 2023 Assessment & Plan (1) Neurogenic claudication due to lumbar spinal stenosis: Plan Pt is a 68yoF w/ PMHx significant for anxiety/depression on Effexor, HLD, HTN, arthritic pain who is s/p lumbar decompression and spinal fusion. Neurogenic Claudication due to Lumbar Spinal Stenosis Pt is s/p lumbar decompression with bilateral medial facetectomies and foraminotomies L2-L3 L3-L4, and posterior spinal fusion L3-L4 on 08/29/[address] Flowers Pt reports improvement in BLE radicular symptoms EBL#450ml Pain management per primary team Wound management per primary team DVT prophylaxis per primary team PT/OT as appropriate Incentive spirometry Monitor H&H for acute blood loss anemia; Hgb stable Other chronic med conditions: HTN, HLD, Anxiety, Depression -- continue with and resume home meds when able. DVT Px - per primary team Dispo: per primary team, home on Friday Admission and Anticipated Discharge Date Admission Date: August 29, 2023 Subjective pt was seen in [address] not going home today. Working on ambulation Review of Systems Review of Systems: All systems reviewed & are unremarkable except as noted in Subjective Physical Exam Physical Exam: General: Alert, oriented. No acute distress Psych: Appropriate mood and affect Neuro: difficulty with movements HEENT: NC/AT CV: RRR Resp: no increased effort of breathing. Abdomen: Soft, nontender, nondistended. Extremities: No edema in lower extremities bilaterally. Results & Data Results & Data Vital Signs (Past 12 Hours) Vital Signs Temp Pulse Resp BP Pulse Ox O2 Del Method 09/01/23 11:51 63 136/86 09/01/23 07:25 36.6 C 57 L 16 185/91 H 96 Room Air
[2023-09-02 06:52] LABS: Hematocrit (blood only) 40.8 % (37.0-47.0); Hemoglobin 13.4 g/dl (12.0-16.0); Mean Corpuscular Hemoglobin 29.5 pg (25.0-34.0); Mean Corpuscular Hgb Conc 32.8 g/dL (32.0-36.0); Mean Corpuscular Volume 89.7 fL (80.0-100.0); Mean Platelet Volume 11.1 fL (9.4-12.4); Platelet Count 179 K/uL (130-400); RDW Coefficient of Variation 15.7 % (11.5-14.5); RDW Standard Deviation 51.3 fL (36.4-46.3); Red Blood Count 4.55 M/uL (4.20-5.40); White Blood Count 12.12 K/ul (4.8-10.8)
[2023-09-02 07:07] LABS: BUN Creatinine Ratio 30.4 (10-20); Calcium 9.7 mg/dl (8.6-10.3); Creatinine Clr Calc Pharmacy 83.2 ml/min; Est GFR (African American) 90.4 ml/min; Potassium 4.2 mmol/L (3.5-5.1)
[2023-09-02 08:36] VITALS: BP 143/81; PULSE 60; RESP 17; TEMP 98.1; O2SAT 94
--- NOTE | 2023-09-02 09:55 | Discharge Summary ---
Date of Service September 02, 2023 Admission HPI Per Admitting Provider This is a 68-year-old female who presents with chronic persistent back and leg pain and failing since course of nonoperative care is here for surgical invention. Principal Diagnosis Lumbar spinal stenosis with neurogenic claudication Discharge Data Allergies Allergy/AdvReac Type Severity Reaction Status Date / Time amoxicillin Allergy head to Verified 08/29/23 08:43 toe rash and swelling nut - unspecified Allergy tongue Verified 08/29/23 08:43 swelling, and inside of mouth shellfish derived Allergy seafood Verified 08/29/23 08:43 itself-tongue swelling Consultations 08/29/23 16:34 Consult Hospitalist Routine Procedures Performed Operation Date: 08/29/23 11:25 Actual Procedures p L3-L4 Decompression and Fusion, L4-L5 Hardware Removal, Spinal Cord Monitoring(Not Applicable) - Abdias Flowers DO Ordered Studies 08/29/23 11:25 [place] lumbar spine 2-3V Routine Hospital Course (1) Neurogenic claudication due to lumbar spinal stenosis: Patient underwent lumbar decompression fusion trial as well as taken to the orthopedic floor postoperative. Postop patient progressed appropriately throughout her stay. Leg pain improved. Excellent strength testing. SHARONDA drain decreasing. Subsequent discharge home. Discharge orders instructions from the chart for further review Total Time Total Time Spent Total Time Spent (In Minutes): 20 minutes Discharge Plan Discharge Items Patient Disposition: Home - Self-Care Reason For Visit: Lumbar Foraminal Stenosis, Lumbar Disc Disease, Melba Discharge Diagnosis: Lumbar spinal stenosis with spondylolisthesis and neurogenic claudication Activity: Resume your previous activity Non-emergency contact: Primary Care Provider Call non-emergency contact if: you have any medication questions Follow-up/Referrals: Prasad Mcadams MD [Primary Care Provider] - Diet: Regular Addtl Attending Provider Instructions: ACTIVITY RECOMMENDATIONS: SELF CARE INSTRUCTIONS AFTER THORACIC/LUMBAR FUSIONS 1. You may walk to your tolerance. It is good exercise for your legs and back. Expect some back and intermittent leg aches and pains. 2. You may perform "counter-top" level activities (make a sandwich, nella with a project, etc.). 3. No bending or lifting of more than 10 pounds or back twisting of any nature (roll like a log when turning in bed). 4. You may ride in a car for 20-30 minutes at a time. No driving until after your first visit with your doctor. 5. Frequent changes of position and restricting sitting to 30 minutes at a time will help limit the amount of back spasms and stiffness you may experience. 6. You may discontinue the use of ambulatory aids (cane, crutches, etc.) once your strength and confidence allow. 7. You may mining technician the shower and let water strike your incision when you arrive home at least once daily. Do not take a tub bath, sit in a hot tub or go into a swimming pool until after your first recheck in the office. SPECIAL CARE INSTRUCTIONS: VERY IMPORTANT TO READ AND REVIEW A. Your surgical incision has been closed with a cosmetic suture under the skin that will dissolve in about 6 weeks. In 14 days, you can use a pair of clean scissors and cut the suture that is left outside of the skin at the ends of your incision. 1. The small skin tapes can be removed 7 days after surgery if they have not fallen off by that point. 2. You may keep the wound open to air as much as possible to promote healing after post-op day number 5 unless told otherwise by your doctor. 3. If you think the wound looks like it is becoming infected (redness or worsening drainage) and/or you are experiencing fever, chill or worsening back pain and muscle spasms, contact the office so that we may evaluate you as soon as possible. B. Complications are uncommon, but please contact us if you have any signs or symptoms of: 1. wound infection (fever higher than 102.5 degrees F, redness, separation of wound, drainage, or increasing pain from the incision) 2. blood clots in legs (pain, swelling, redness and warmth in legs) 3. urinary tract infection (fever higher than 102.5 degrees F, burning upon urination or increased frequency of urination) 4. nerve problems (inability to walk on your toes or heels, numbness, loss of bowel or bladder control) 5. any other symptoms that concern you C. Please call the office at if you have any concerns or questions about your operation or recovery. D. No smoking! Smoking drastically decreases the chance of a solid fusion. E. Do not take any anti-inflammatory medications (Indocin, Advil, Motrin, Aspirin, Naprosyn, etc.) as these may inhibit the chance of a solid fusion. Tylenol is okay to take for pain. MANAGING PAIN AFTER SPINAL SURGERY 1. Narcotic medication is intended for short-term use and will be provided for surgical pain. Surgical pain usually lasts for a period of 4-6 weeks. Narcotic medication includes Percocet, Vicodin, Darvocet, Tylenol #3 or Lortab. 2. Longer-term pain is more appropriately treated with non-narcotic medication such as Tylenol ES. 3. Muscle spasm is not appropriately treated with narcotics. Muscle relaxers such as Soma, Flexeril or Skelaxin can be used along with Tylenol ES. 4. Remember that we all live with some "aches and pains". This is not unusual or uncommon after an injury or as we get older. a. Back pain is expected and may include muscle spasms for 4 to 6 weeks after surgery. The pain should gradually improve. If the pain worsens for no apparent reason, please contact the office. b. Intermittent leg pain may also be experienced and should not be concerned about unless it worsens for no apparent reason. If so, please contact the office. 5. We will provide appropriate medication within the normal guidelines of their prescribed use. We will also be very cautious and aware of potential abuse and extended duration of patients' medication needs. a. Pain medications are for your comfort and to assist with sleep and rest so that the tissue can heal. They are not provided in order to return to normal activity and should not be used through the day. To do so or worsening pain at night can result from ongoing tissue damage and development of tolerance to the prescribed medicine. 6. Please allow 2-3 days to process refills. Prescriptions will not be mailed but must be picked up at the office. FOLLOW UP VISIT: Keep your scheduled follow-up appointment. Any questions, please call the office at . Pending Studies at Discharge: No Stand-Alone Forms: [employer], Smoking Cessation Medications and DC Order Prescriptions: New tramadol 50 mg tablet 50 mg PO Q6H PRN (Reason: pain, moderate) Qty: 30 0RF oxycodone 5 mg tablet 5 mg PO Q6H PRN (Reason: pain) Qty: 30 0RF Continued multivitamin Tablet 0.5 tab PO QPM losartan 50 mg Tablet 50 mg PO HS celecoxib [Celebrex] 200 mg Capsule 200 mg PO BID ropinirole 1 mg Tablet 1 mg PO HS beta carotene 15 mg Tablet 15 mg PO QAM simvastatin 40 mg Tablet 40 mg PO HS baclofen 10 mg Tablet 10 mg PO QID biotin 10,000 mcg Capsule 10,000 mcg PO QPM Patient Comments: w/collagen magnesium 250 mg Tablet 125 mg PO QID ondansetron 4 mg Tablet,Disintegrating 4 mg PO Q6H PRN (Reason: Nausea) loratadine 10 mg Tablet 10 mg PO DAILY PRN (Reason: Allergy Symptoms) venlafaxine 37.5 mg Tablet Extended Release 24hr 37.5 mg PO QAM cholecalciferol (vitamin D3) [Vitamin D3] 125 mcg (5,000 unit) Tablet 125 mcg PO BID fluticasone propionate [Flonase] 50 mcg/actuation [place],Suspension 1 spray INTRANASAL HS Rx Instructions: administer into each nostril Discharge Orders: Discharge Order (Routine); Ordered 09/02/23 Ordered By: Abdias Flowers Admission Data Admit Date/Time: 08/29/23 13:57 Attending Provider: Abdias Flowers Admit Provider: Abdias Flowers Primary Care Provider: Prasad Mcadams Other Providers: Adelaide Ramachandran
--- NOTE | 2023-09-02 10:09 | Hospitalist Progress Note ---
Date of Service September 02, 2023 Assessment & Plan (1) Neurogenic claudication due to lumbar spinal stenosis: Plan Pt is a 68yoF w/ PMHx significant for anxiety/depression on Effexor, HLD, HTN, arthritic pain who is s/p lumbar decompression and spinal fusion. Neurogenic Claudication due to Lumbar Spinal Stenosis Pt is s/p lumbar decompression with bilateral medial facetectomies and foraminotomies L2-L3 L3-L4, and posterior spinal fusion L3-L4 on 08/29/[address] Flowers Pt reports improvement in BLE radicular symptoms EBL#450ml Pain management per primary team Wound management per primary team DVT prophylaxis per primary team PT/OT as appropriate Incentive spirometry Monitor H&H for acute blood loss anemia; Hgb stable on discharge at 13.4 Other chronic med conditions: HTN, HLD, Anxiety, Depression -- continue with and resume home meds when able. Admission and Anticipated Discharge Date Admission Date: August 29, 2023 Subjective Pt was seen while laying in bed. Denied acute concerns. Anxious to go home. Review of Systems Review of Systems: All systems reviewed & are unremarkable except as noted in Subjective Physical Exam Physical Exam: General: Alert, oriented. No acute distress Psych: Appropriate mood and affect Neuro: difficulty with movements in the bed HEENT: NC/AT CV: RRR Resp: no increased effort of breathing. Abdomen: Soft, nontender, nondistended. Extremities: No edema in lower extremities bilaterally. Results & Data Results & Data Vital Signs (Past 12 Hours) Vital Signs Temp Pulse Resp BP Pulse Ox O2 Del Method 09/02/23 08:35 36.7 C 60 17 143/81 H 94 Room Air
[2023-09-02] MEDS: ONDANSETRON 4 MG OD TAB PO PRN (18:18)
== END 2023-09-02 18:45 | disposition home health service (06) | DRG 454 ==
LOC: ASU 08:05 → 3N 13:57 → INTOOBSV 13:57